=== PATIENT | male | born 1970 | race Caucasian/White ===

== ENCOUNTER 2021-06-01 11:22 | Emergency (ER) | payer OTHER ==
[2021-06-01] MEDS ORDERED: SODIUM CHLORIDE 0.9% 1,000 ML IV STA (11:37)
[2021-06-01] MEDS ORDERED: MECLIZINE 12.5 MG TAB PO STA (11:38)
[2021-06-01 12:01] LABS: Basophils # (A) 0.1 k/uL (0-0.2); Basophils % (A) 2 %; Eosinophils # (A) 0.3 k/uL (0-0.7); Eosinophils % (A) 5 %; HGB 15.4 gm/dL (13.0-17.5); Hyperchromasia Slight; Lymphocytes # (A) 1.9 k/uL (1.0-4.8); Lymphocytes % (A) 29 %; MCH 33.7 pg (25.0-35.0); MCHC 36.7 g/dL (31.0-37.0); MCV 91.7 fL (80.0-100.0); Mean Platelet Volume 8.9; Monocytes # (A) 0.5 k/uL (0-1.0); Monocytes % (A) 7 %; Neutrophils # (A) 3.8 k/uL (1.3-7.7); Neutrophils % (A) 56 %; Platelet Count 262 k/uL (150-450); RBC 4.58 m/uL (4.30-5.90); RDW 12.6 % (11.5-15.5); WBC 6.8 k/uL (3.8-10.6)
[2021-06-01 12:09] LABS: INR 0.9 (<1.2); Prothrombin Time 10.1 sec (9.0-12.0)
[2021-06-01 12:10] LABS: Partial Thromboplastin Time 23.7 sec (22.0-30.0)
[2021-06-01 12:16] LABS: ALT 66 U/L (4-49); AST 41 U/L (17-59); African American GFR (CKD) >90 (>60 ml/min/1.73 sqM); Albumin 4.4 g/dL (3.5-5.0); Alkaline Phosphatase 73 U/L (38-126); Anion Gap 9 mmol/L; Blood Urea Nitrogen 12 mg/dL (9-20); Calcium 9.6 mg/dL (8.4-10.2); Carbon Dioxide 24 mmol/L (22-30); Chloride 105 mmol/L (98-107); Glucose 120 mg/dL (74-99); Non-African American GFR(CKD) 80 (>60 ml/min/1.73 sqM); Potassium 4.2 mmol/L (3.5-5.1); Sodium 138 mmol/L (137-145); Total Bilirubin 1.4 mg/dL (0.2-1.3); Total Protein 7.5 g/dL (6.3-8.2)
--- NOTE | 2021-06-01 12:33 | ED ---
General Adult HPI - General Chief complaint: Shortness of Breath Stated complaint: JOSE Time Seen by Provider: 06/01/21 11:32 Source: patient, RN notes reviewed Mode of arrival: wheelchair Limitations: no limitations - History of Present Illness Initial comments: 50-year-old male presents emergency Department chief complaint of episode shortness breath, dizziness. 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 Patient states started having shortness of breath not feeling well he did use an inhaler which helped. He states he still feels slightly lightheaded no chest pain no nausea vomiting leg swelling no history DVT or PE no fevers or chills no cough over symptoms. - Related Data Home Medications Medication Instructions Recorded Confirmed Albuterol Inhaler [Ventolin Hfa 2 puff INHALATION RT-Q6H PRN 06/01/21 06/01/21 Inhaler] Allergy Tab Unknown 1 tab PO DAILY 06/01/21 06/01/21 Allergies Allergy/AdvReac Type Severity Reaction Status Date / Time No Known Allergies Allergy Verified 06/01/21 12:08 Review of Systems ROS Statement: Those systems with pertinent positive or pertinent negative responses have been documented in the HPI. ROS Other: All systems not noted in ROS Statement are negative. Past Medical History Past Medical History: Asthma History of Any Multi-Drug Resistant Organisms: None Reported Past Surgical History: Orthopedic Surgery Additional Past Surgical History / Comment(s): nasal polyps Past Psychological History: No Psychological Hx Reported Smoking Status: Never smoker Past Alcohol Use History: None Reported Past Drug Use History: Marijuana General Exam Limitations: no limitations General appearance: alert, in no apparent distress Head exam: Present: atraumatic, normocephalic, normal inspection Eye exam: Present: normal appearance, PERRL, EOMI. Absent: scleral icterus, conjunctival injection, periorbital swelling ENT exam: Present: normal exam, mucous membranes moist Neck exam: Present: normal inspection, full ROM. Absent: tenderness, meningismus, lymphadenopathy Respiratory exam: Present: normal lung sounds bilaterally. Absent: respiratory distress, wheezes, rales, rhonchi, stridor Cardiovascular Exam: Present: regular rate, normal rhythm, normal heart sounds. Absent: systolic murmur, diastolic murmur, rubs, gallop, clicks GI/Abdominal exam: Present: soft, normal bowel sounds. Absent: distended, tenderness, guarding, rebound, rigid Neurological exam: Present: alert, oriented X3, CN II-XII intact, reflexes normal. Absent: motor sensory deficit Skin exam: Present: warm, dry, intact, normal color. Absent: rash Course Vital Signs 06/01/21 11:23 Temperature 97.6 F Pulse Rate 68 Respiratory 19 Rate Blood Pressure 152/93 O2 Sat by Pulse 97 Oximetry EKG Findings - EKG Comments: EKG Findings:: EKG performed at 11:35 normal sinus rhythm rate of 65 AK 160 QRS 90 QT/QTC 400 /416 Medical Decision Making - Medical Decision Making 50-year-old presented for Lightheadedness, Shortness Breath after Being Exposed to Chemical at Work. Patient Feels Improved at This Time Workup Is Negative Chest X-Ray Read As Possible CHF Though Currently Does Not Have Any Evidence of This. Patient We Discharged in Stable Condition Return Parameters Discussed. - Lab Data Result diagrams: 06/01/21 11:42 06/01/21 11:42 Lab Results 06/01/21 06/01/21 06/01/21 Range/Units 11:42 11:42 11:42 WBC 6.8 (3.8-10.6) k/uL RBC 4.58 (4.30-5.90) m/uL Hgb 15.4 (13.0-17.5) gm/dL Hct 42.0 (39.0-53.0) % MCV 91.7 (80.0-100.0) fL MCH 33.7 (25.0-35.0) pg MCHC 36.7 (31.0-37.0) g/dL RDW 12.6 (11.5-15.5) % Plt Count 262 (150-450) k/uL MPV 8.9 Neutrophils % 56 % Lymphocytes % 29 % Monocytes % 7 % Eosinophils % 5 % Basophils % 2 % Neutrophils # 3.8 (1.3-7.7) k/uL Lymphocytes # 1.9 (1.0-4.8) k/uL Monocytes # 0.5 (0-1.0) k/uL Eosinophils # 0.3 (0-0.7) k/uL Basophils # 0.1 (0-0.2) k/uL Hyperchromasia Slight PT 10.1 (9.0-12.0) sec INR 0.9 (<1.2) APTT 23.7 (22.0-30.0) sec Sodium 138 (137-145) mmol/L Potassium 4.2 (3.5-5.1) mmol/L Chloride 105 (98-107) mmol/L Carbon Dioxide 24 (22-30) mmol/L Anion Gap 9 mmol/L BUN 12 (9-20) mg/dL Creatinine 1.07 (0.66-1.25) mg/dL Est GFR (CKD-EPI)AfAm >90 (>60 ml/min/1.73 sqM) Est GFR (CKD-EPI)NonAf 80 (>60 ml/min/1.73 sqM) Glucose 120 H (74-99) mg/dL Calcium 9.6 (8.4-10.2) mg/dL Magnesium 2.0 (1.6-2.3) mg/dL Total Bilirubin 1.4 H (0.2-1.3) mg/dL AST 41 (17-59) U/L ALT 66 H (4-49) U/L Alkaline Phosphatase 73 (38-126) U/L Troponin I (0.000-0.034) ng/mL NT-Pro-B Natriuret Pep pg/mL Total Protein 7.5 (6.3-8.2) g/dL Albumin 4.4 (3.5-5.0) g/dL 06/01/21 06/01/21 Range/Units 11:42 11:42 WBC (3.8-10.6) k/uL RBC (4.30-5.90) m/uL Hgb (13.0-17.5) gm/dL Hct (39.0-53.0) % MCV (80.0-100.0) fL MCH (25.0-35.0) pg MCHC (31.0-37.0) g/dL RDW (11.5-15.5) % Plt Count (150-450) k/uL MPV Neutrophils % % Lymphocytes % % Monocytes % % Eosinophils % % Basophils % % Neutrophils # (1.3-7.7) k/uL Lymphocytes # (1.0-4.8) k/uL Monocytes # (0-1.0) k/uL Eosinophils # (0-0.7) k/uL Basophils # (0-0.2) k/uL Hyperchromasia PT (9.0-12.0) sec INR (<1.2) APTT (22.0-30.0) sec Sodium (137-145) mmol/L Potassium (3.5-5.1) mmol/L Chloride (98-107) mmol/L Carbon Dioxide (22-30) mmol/L Anion Gap mmol/L BUN (9-20) mg/dL Creatinine (0.66-1.25) mg/dL Est GFR (CKD-EPI)AfAm (>60 ml/min/1.73 sqM) Est GFR (CKD-EPI)NonAf (>60 ml/min/1.73 sqM) Glucose (74-99) mg/dL Calcium (8.4-10.2) mg/dL Magnesium (1.6-2.3) mg/dL Total Bilirubin (0.2-1.3) mg/dL AST (17-59) U/L ALT (4-49) U/L Alkaline Phosphatase (38-126) U/L Troponin I <0.012 (0.000-0.034) ng/mL NT-Pro-B Natriuret Pep 20 pg/mL Total Protein (6.3-8.2) g/dL Albumin (3.5-5.0) g/dL Disposition Clinical Impression: Lightheadedness, Chemical exposure, Dyspnea Disposition: HOME SELF-CARE Condition: Stable Instructions (If sedation given, give patient instructions): Dyspnea (ED) Additional Instructions: Please return to the Emergency Department if symptoms worsen or any other concerns. Is patient prescribed a controlled substance at d/c from ED?: No Referrals: Gadiel Massey MD [Primary Care Provider] - 1-2 days Time of Disposition: 13:04
--- NOTE | 2021-06-01 12:37 | XR ---
EXAMINATION TYPE: XR chest 2V DATE OF EXAM: 06/01/2021 COMPARISON: NONE HISTORY: Dyspnea and dizziness. TECHNIQUE: Frontal and lateral views of the chest are obtained. FINDINGS: There is no focal air space opacity, pleural effusion, or pneumothorax seen. The cardiac silhouette size is mildly enlarged with mild central vascular congestion suspected. Overlying EKG le ads. The osseous structures are intact. Air-fluid level within slightly prominent stomach, correlate clinically. IMPRESSION: Mild cardiomegaly with mild central vascular congestion, correlate for CHF exacerbation.
[2021-06-01 13:25] VITALS: BP 127/73; PULSE 62; RESP 18; TEMP 97.8
== END 2021-06-01 13:26 | disposition home or self-care (01) ==
LOC: EC 11:22
DX: R06.02 Shortness of breath (principal); R42 Dizziness and giddiness; Z77.098 Contact with and (suspected) exposure to other hazardous, chiefly nonmedicinal, chemicals; J45.909 Unspecified asthma, uncomplicated; F12.90 Cannabis use, unspecified, uncomplicated; Z79.899 Other long term (current) drug therapy
CPT/HCPCS: 36415; 71046; 80053; 83735; 83880; 84484; 85025; 85610; 85730; 93005; 96360; 99285